=== PATIENT | male | born 1985 | race Caucasian/White ===

== ENCOUNTER 2016-05-11 22:22 | Emergency (ER) | payer OTHER ==
--- NOTE | 2016-05-12 07:08 | ED CLINICAL REPORT ---
Clinical Report - Physicians/Mid Levels [facility] [address] [place] [address] 05/11/2016 22:25 Patient: CECILLE SUNG Time Seen: 22:31. Arrived- By private vehicle. Historian- significant other. History limited by poor cooperation and psychosis. Physical Exam limited by poor cooperation and psychosis. HISTORY OF PRESENT ILLNESS Chief Complaint: BEHAVIOR CHANGE. This started today. The patient has experienced situational problems. (the patient is accompanied by his girlfriend. He arrived at the hospital and staff report that he has been acting very strangely. He has been yelling in the lobby saying nonsensical statements and stripped his clothing off and has been walking around inside and outside hospital building. His girlfriend has been trying to console him and get him to cooperate without much success. Hospital staff contacted [facility]. after their arrival the patient followed myself and staff in 2 room 16. He continued to be speaking nonsense crying at times agitated and threatening towards staff. [place] police officers assisted in rrestraint of the patient and he was treated with Haldol 5 mg IM initially staff subsequently obtain a urine sample and that an IV and the patient received subsequent treatments with Haldol as noted.). He was found wandering. REVIEW OF SYSTEMS Unobtainable due to patient's uncooperativeness. PAST HISTORY Problems: Unknown. Additional Surgeries: no known surgeries. Medications: Unable to Obtain. Allergies: No Known Drug Allergy. SOCIAL HISTORY Has poor social support. FAMILY HISTORY Unable to obtain family medical history due to patient's unresponsiveness. ADDITIONAL NOTES The nursing notes have been reviewed. PHYSICAL EXAM Vital Signs: 05/11/2016 23:16 BP: 120/76. HR: 123. RR: 32. O2 saturation: 100%. Have been reviewed. Appearance: Is disheveled and has poor hygiene. Patient is uncooperative. He appears hostile and agitated and is combative. Eyes: Pupils equal, round and reactive to light. Neck: Normal inspection. Neck supple. CVS: Normal heart rate and rhythm. Heart sounds normal. Respiratory: Breath sounds normal. Chest nontender. Abdomen: Soft and nontender. Back: No tenderness. Skin: Skin warm and dry. Normal skin color. Normal skin turgor. Extremities: Extremities exhibit normal ROM. No calf tenderness. No lower extremity edema. Psych / Neuro: The patient exhibits altered thought processes, verbalized as racing thoughts and non-sensical thoughts. LABS, X-RAYS, AND EKG Laboratory Tests: UA-Culture if indicated: (LEE: 05/11/2016 22:30) ( [facility]11[facility] 22:52) Final results Test Result Flag Units (Reference) URINE COLOR YELLOW URINE APPEARANCE CLEAR URINE GLUCOSE NEGATIVE (NEGATIVE) URINE BILIRUBIN 1+ (NEGATIVE) URINE KETONE 1+ (NEGATIVE) URINE SPECIFIC GRAVITY 1.025 (1.010-1.030) URINE PH 6.0 (5.0-8.0) URINE PROTEIN 1+ (NEGATIVE) URINE UROBILINOGEN 4.0 EU/dL (0.2-1.0) The urobilinogen reagent area may react with interferingsubstances known to react with Mik's reagent such asp-aminosalicylic acid and sulfonamides. Atypical colorreactions may be obtained in the presence of highconcentrations of p-aminobenzoic acid. The absence ofurobilinogen cannot be determined with this test. URINE NITRITE NEGATIVE (NEGATIVE) URINE BLOOD NEGATIVE (NEGATIVE) URINE LEUK ESTERASE TRACE (NEGATIVE) URINE RBC 0-1 rbc/hpf (0-1) URINE WBC 15-25 wbc/hpf (0-1) URINE EPITHELIAL CELLS 0-1 EPI/hpf (0-5) URINE BACTERIA MODERATE (2+ TO 3+) (NONE SEEN) URINE COMMENT CULTURE INDICATED URINE CULTURES ARE SET-UP BASED ON THE FOLLOWING CRITERIA:POSITIVE NITRITEPOSITIVE LEUKOCYTE ESTERASEGREATER THAN 10 WHITE BLOOD CELLSMODERATE (2+) OR GREATER BACTERIA CBC w Diff: (LEE: 05/11/2016 22:40) ( [facility] 05/11/2016 22:55) Final results Test Result Flag Units (Reference) WHITE BLOOD COUNT 14.4 H K/uL (4.5-11.5) RED BLOOD COUNT 4.51 M/uL (4.50-5.90) HEMOGLOBIN 13.3 L gm/dL (13.5-17.5) HEMATOCRIT 40.2 L % (41.0-53.0) MEAN CELL VOLUME 89 fL (80-100) MEAN CORPUSCULAR HGB 30 pg (26-34) MEAN CORPUSCULAR HGB CONC 33 g/dL (31-37) RED CELL DISTRIBUTION WIDTH 13.4 % (11.6-14.8) PLATELET COUNT 304 K/uL (150-400) LYMPH % 29.2 % (25-40) MONO % 8.1 % (3-14) GRANULOCYTE % 62.7 Urine Drug Screen: (LEE: 05/11/2016 22:30) ( MsgRcvd 05/11/2016 22:56) Final results Test Result Flag Units (Reference) AMPHETAMINE/METHAMPHETAMINE POSITIVE H (NEGATIVE) BARBITURATE NEGATIVE (NEGATIVE) BENZODIAZEPINE NEGATIVE (NEGATIVE) CANNABINOID POSITIVE H (NEGATIVE) COCAINE NEGATIVE (NEGATIVE) ECSTASY NEGATIVE (NEGATIVE) METHADONE NEGATIVE (NEGATIVE) OPIATE NEGATIVE (NEGATIVE) The urine drug screen is a qualitative screening test fordrug overdose and abuse. All screen results should beconsidered as presumptive.Drugs screened for are as follows:BenzodiazepinesCocaineAmphetamines/MetamphetaminesTHC (Tetrahydrocannabinol)OpiatesBarbituratesEcstasyMethadonePositive results are unconfirmed. For confirmation, notifythe lab for the specimen to be sent to the reference lab.All confirmations must be performed by a differentmethodology.The ingestion of natural herbal and plant productscontaining Ephedra/Ephedra metabolites can produce in urineone or more substances capable of cross reacting withamphetamine/methamphetamine immunoassays. These testsprovide a preliminary result only. A more specificalternative chemical method must be used to obtain aconfirmed analytical result. CMP: (LEE: 05/11/2016 22:40) ( MsgRcvd 05/11/2016 23:09) Final results Test Result Flag Units (Reference) GLUCOSE 127 H mg/dL (70-110) BUN 18 mg/dL (7-18) CREATININE 1.3 mg/dL (0.6-1.3) Estimated GFR >60 mL/min Estimated GFR- >60 mL/min Note: Persistent reduction over 3 months in eGFR<60 mL/min/1.73 m2 defines CKD. Patients with eGFR values>=60 mL/min/1.73 m2 may also have CKD if evidence ofpersistent proteinuria. Additional information may be foundat www.kidney.org. SODIUM 141 mmol/L (136-145) POTASSIUM 3.2 L mmol/L (3.5-5.1) CHLORIDE 102 mmol/L (98-107) CARBON DIOXIDE 18 L mmol/L (21-32) CALCIUM 8.7 mg/dL (8.5-10.1) TOTAL PROTEIN 7.8 g/dL (6.4-8.2) ALBUMIN 4.2 g/dL (3.3-5.0) BILIRUBIN, TOTAL 0.8 mg/dL (0.0-1.0) ALKALINE PHOSPHATASE 104 U/L (46-116) AST (SGOT) 34 U/L (15-37) ALT (SGPT) 31 U/L (12-78) LIPASE 74 U/L (73-393) AMYLASE 22 L U/L (25-115) ETHYL ALCOHOL <3 L mg/dL (3-10) . PROGRESS AND PROCEDURES Course of Care: A mask was placed over the patient's face as he was spitting at staff. 07:00. Evaluation after observation and sedative. Symptoms better. Patient is not having pain. No difficulty breathing, nausea, vomiting or palpitations. He is having mild anxiety. Vital signs have been reviewed. Physical exam findings are improved. Alert. Breath sounds normal. No respiratory distress. Normal heart rate and rhythm. Heart sounds normal. Abdomen soft and nontender. Skin warm and dry. Mental status altered. Disoriented to place and time. Eyes open spontaneously. Best verbal response: disoriented. Best motor response: obeys commands. Patient/family counseled. Old medical records ordered. Old records unavailable. Disposition: Discharged. Condition: stable. CLINICAL IMPRESSION Substance abuse- marijuana, methamphetamines. INSTRUCTIONS No driving or operating machinery while taking medication. Sedative medication was given during your visit. Stay with responsible adult family member (or other responsible adult). (seek medical help to address your substance abuse as discussed). Warnings: Further evaluation is necessary. GENERAL WARNINGS: Return or contact your physician immediately if your condition worsens or changes unexpectedly, if not improving as expected, or if other problems arise. Follow-up: Follow up with your doctor. Call for the next available appointment. Understanding of the discharge instructions verbalized by patient. Discharge instructions reviewed with and understanding was verbalized by press operator assistant. (Electronically signed by nAt Guy MD 05/13/2016 2:41)
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
--- NOTE | 2016-05-12 07:08 | ED ORDER SUMMARY ---
..... Patient: CECILLE SUNG OrderSheet [facility] VisitID: [id number] [address] [place] [address] 30y, M Registration Date/Time: 05/11/2016 ORDER SHEET Weight: 86.1 kg (estimated) Allergies: No Known Drug Allergy GENERAL ORDERS: CBC w Diff Urgent (22:32 05/11/2016 Aman STORY) (Ack 22:52 LMuller) (22:52 LMuller) CMP Urgent (22:32 05/11/2016 Aman STORY) (Ack 22:52 LMuller) (22:52 LMuller) UA-Culture if indicated Urgent (22:05/11/2016 Aman STORY) (22:39 Gabriel R.N.) Amylase Urgent (22:05/11/2016 Aman STORY) (Ack 22:52 LMuller) (22:52 LMuller) Lipase Urgent (22:32 05/11/2016 Aman STORY) (Ack 22:52 LMuller) (22:52 LMuller) Urine Drug Screen Urgent (22:32 05/11/2016 Aman STORY) (22:39 Gabriel R.N.) Ethyl Alcohol Urgent (22:32 05/11/2016 Aman STORY) (Ack 22:52 LMuller) (22:52 LMuller) MEDICATION ORDERS: Haldol IM 5 mg (HIGH ALERT MEDICATION, NOW) (22:52 05/11/2016 LeifQuivey R.N. verbal order read back to Aman STORY) (22:53 JQuivey R.N.) IV FLUIDS: Haldol IV 1 mg (HIGH ALERT MEDICATION, NOW) (23:05 05/11/2016 Aman STORY) (Ack 23:10 JQuivey R.N.) (23:35 JQuivey R.N.) ORDER SHEET NOTES: [Electronically signed by Rene Mann R.N. (07:21 05/12/2016)] [Electronically signed by Ant Guy MD (02:41 05/13/2016)] [Electronically locked/signed by Rene Mann R.N. (07:21 05/12/2016)]
--- NOTE | 2016-05-12 07:08 | ED ORDER SUMMARY ---
..... Patient: CECILLE SUNG OrderSheet [facility] VisitID: [id number] [address] [place] [address] 30y, M Registration Date/Time: 05/11/2016 ORDER SHEET Weight: 86.1 kg (estimated) Allergies: No Known Drug Allergy GENERAL ORDERS: CBC w Diff Urgent (22:32 05/11/2016 Aman STORY) (Ack 22:52 LMuller) (22:52 LMuller) CMP Urgent (22:32 05/11/2016 Aman STORY) (Ack 22:52 LMuller) (22:52 LMuller) UA-Culture if indicated Urgent (22:05/11/2016 Aman STORY) (22:39 Gabriel R.N.) Amylase Urgent (22:05/11/2016 Aman STORY) (Ack 22:52 LMuller) (22:52 LMuller) Lipase Urgent (22:32 05/11/2016 Aman STORY) (Ack 22:52 LMuller) (22:52 LMuller) Urine Drug Screen Urgent (22:32 05/11/2016 Aman STORY) (22:39 Gabriel R.N.) Ethyl Alcohol Urgent (22:32 05/11/2016 Aman STORY) (Ack 22:52 LMuller) (22:52 LMuller) MEDICATION ORDERS: Haldol IM 5 mg (HIGH ALERT MEDICATION, NOW) (22:52 05/11/2016 LeifQuivey R.N. verbal order read back to Aman STORY) (22:53 JQuivey R.N.) IV FLUIDS: Haldol IV 1 mg (HIGH ALERT MEDICATION, NOW) (23:05 05/11/2016 Aman STORY) (Ack 23:10 JQuivey R.N.) (23:35 JQuivey R.N.) ORDER SHEET NOTES: [Electronically signed by Rene Mann R.N. (07:21 05/12/2016)] [Electronically signed by Ant Guy MD (02:41 05/13/2016)] [Electronically locked/signed by Rene Mann R.N. (07:21 05/12/2016)]
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
--- NOTE | 2016-05-13 02:41 | ED DISCHARGE INSTRUCTIONS ---
Patient: CECILLE SUNG General Instructions [facility] VisitID: [id number] [place] [address] 30y, M Registration Date/Time: 05/11/2016 Substance abuse- marijuana, methamphetamines. INSTRUCTIONS No driving or operating machinery while taking medication. Sedative medication was given during your visit. Stay with responsible adult family member (or other responsible adult). (seek medical help to address your substance abuse as discussed). Warnings: Further evaluation is necessary. GENERAL WARNINGS: Return or contact your physician immediately if your condition worsens or changes unexpectedly, if not improving as expected, or if other problems arise. Follow-up: Follow up with your doctor. Call for the next available appointment. Understanding of the discharge instructions verbalized by patient. Discharge instructions reviewed with and understanding was verbalized by geological e logger. ADDITIONAL INFORMATION Drug Abuse Use and abuse of such drugs as marijuana, amphetamines (speed, crank), cocaine, heroin or prescription pain medicines (Vicodin, codeine), sedatives and sleeping pills (Valium, Klonopin), PCP, mescaline and LSD may lead to addiction or dependence. Once this occurs, you are at greater risk for any of the following: Craving for the drug and unable to stop using the drug even though you think you want to stop (psychological dependence) Drug withdrawal symptoms if you stop taking the drug (physical dependence) Loss of your job or your family Arrest, conviction and assisted sentence for possession of an illegal substance or for driving under the influence of such a substance Accidental injuries to yourself or others while you are under the influence of the drug (in a car or at home). HIV infection (much greater risk if you use IV drugs) Other sexually transmitted diseases (herpes, chlamydia, gonorrhea and others) Severe and fatal infection of the heart valves (if you use IV drugs) Stroke, heart attack, hepatitis B or C, kidney failure from overdose Home Care: Admit you have a drug problem. Ask for help from your family and close friends. Seek professional help. This could be in the form of individual psychotherapy or counseling or an outpatient, inpatient, or residential drug treatment program. Join a self-help group for drug abuse. Avoid friends who abuse drugs themselves or tempt you to continue abusing drugs. Eat a balanced diet and begin a regular exercise program. Follow Up with your doctor or as advised by our staff. Contact one of the resources below for help. National [place] on Alcoholism and Drug Dependence www.ncadd.org 433-007-YYWI Narcotics Anonymous www.na.org 359-857-7409 National Alcohol and Substance Abuse Information Center (for referral to treatment programs) www.[employer]uclip 114-634-0097 Get Prompt Medical Attention if any of the following occur: Agitation, anxiety, unable to sleep Unintended weight loss (more than 10 to 15 pounds over 3 months) Seizure Chest pain Fever of 100.4F (38C) or higher, or as directed by your healthcare provider Excess drowsiness or inability to be awakened Shortness of breath Slow breathing under 8 breaths per minute Cough with colored sputum Redness, swelling or tenderness at an injection site Marijuana Abuse Marijuana is the most widely used illegal drug in the [place]. It is called by various names such as pot, weed, blunts, grass, reefer, ganja, hash, hashish. It is usually smoked but can be mixed with foods or brewed as a tea. It is sometimes sold with PCP (Jason Dust) or amphetamine mixed in it. These drugs can cause other harmful side effects. Marijuana can cause the following effects: Changes in mood (stimulated, happy, drowsy, depressed, paranoid) Hallucinations Increased heart rate and blood pressure Increased appetite Time distortion, difficulty concentrating, impaired memory Lung damage (similar to cigarettes with chronic cough, wheezing, frequent colds and bronchitis) You can become psychologically dependent on marijuana. That means the craving to use the drug is emotional or psychological rather than due to physical withdrawal. Is Marijuana Running Your Life? Here are some of the signs: Relying on marijuana to feel good, forget problems, deal with stress or to relax Wanting to be alone most of the time or only with others who use drugs Losing interest in things that used to be important Changes in school or job performance or attendance Spending a lot of time thinking about how to get marijuana Stealing or selling your things so you can buy marijuana Unable to stop using even though you may want to quit Increasing anxiety, anger,or depression Sleeping too much, changes in eating habits (weight loss or gain) Needing to use more to get the same effect Home Care Once you have become addicted to any drug, quitting is hard to do. Most people find they can't quit without help. So, dont try to do this alone. Talk to someone you trust who can support you. Seek professional help. Avoid people and places where drugs are used. That only increases the temptation to use. Follow Up with your doctor or as advised by our staff. For more information or a referral to a treatment center in your area, contact: Your local mental health center or the National Alcohol and Substance Abuse Information Center (987)-725-4845 www.addictioncareMaktoobions.com National [place] on Alcoholism and Drug Dependence 426-979-KBNY www.ncadd.org Marijuana Anonymous 851-041-2651 www.marijuana-anonymous.org Get Prompt Medical Attention if any of the following occur: You feel extreme depression, fear, anxiety, or anger toward yourself or others You feel out of control You feel that you may try to harm yourself or another You have been given the following additional information: Drug Abuse Marijuana Abuse No driving or operating machinery while taking medication. Sedative medication was given during your visit. Stay with responsible adult family member (or other responsible adult). (Electronically signed by Ant Guy MD 05/13/2016 2:41)
--- NOTE | 2016-05-13 02:41 | ED MED RECONCILIATION SUMMARY ---
Patient: MILTONAFSHANCECILLE Childs Naz Medication Reconciliation Report [facility] VisitID: [id number] [address] [place] [address] 30y, M Registration Date/Time: 05/11/2016 Weight: 86.1 kg Height/Length: 71 in. BMI: 26.5 ALLERGIES: No Known Drug Allergy The patient's Home Medications are listed below: Unable to obtain. The source(s) of the original Home Medication information: Not obtained. The following Medications were given to the patient in the Emergency Department: HALDOL [IM] IM 5 mg, administered: 05/11/2016 10:28:00 PM HALDOL [IVP] IVP 1 mg, administered: 05/11/2016 11:33:00 PM HALDOL [IVP] IVP 1 mg, administered: 05/11/2016 11:15:00 PM HALDOL [IVP] IVP 1 mg, administered: 05/11/2016 11:57:00 PM HALDOL [IVP] IVP 1 mg, administered: 05/12/2016 12:16:00 AM The following Medications were prescribed to the patient: None.
--- NOTE | 2016-05-13 02:41 | ED DISCHARGE INSTRUCTIONS ---
Patient: CECILLE SUNG General Instructions [facility] VisitID: [id number] [place] [address] 30y, M Registration Date/Time: 05/11/2016 Substance abuse- marijuana, methamphetamines. INSTRUCTIONS No driving or operating machinery while taking medication. Sedative medication was given during your visit. Stay with responsible adult family member (or other responsible adult). (seek medical help to address your substance abuse as discussed). Warnings: Further evaluation is necessary. GENERAL WARNINGS: Return or contact your physician immediately if your condition worsens or changes unexpectedly, if not improving as expected, or if other problems arise. Follow-up: Follow up with your doctor. Call for the next available appointment. Understanding of the discharge instructions verbalized by patient. Discharge instructions reviewed with and understanding was verbalized by physical metallurgist. ADDITIONAL INFORMATION Drug Abuse Use and abuse of such drugs as marijuana, amphetamines (speed, crank), cocaine, heroin or prescription pain medicines (Vicodin, codeine), sedatives and sleeping pills (Valium, Klonopin), PCP, mescaline and LSD may lead to addiction or dependence. Once this occurs, you are at greater risk for any of the following: Craving for the drug and unable to stop using the drug even though you think you want to stop (psychological dependence) Drug withdrawal symptoms if you stop taking the drug (physical dependence) Loss of your job or your family Arrest, conviction and alf sentence for possession of an illegal substance or for driving under the influence of such a substance Accidental injuries to yourself or others while you are under the influence of the drug (in a car or at home). HIV infection (much greater risk if you use IV drugs) Other sexually transmitted diseases (herpes, chlamydia, gonorrhea and others) Severe and fatal infection of the heart valves (if you use IV drugs) Stroke, heart attack, hepatitis B or C, kidney failure from overdose Home Care: Admit you have a drug problem. Ask for help from your family and close friends. Seek professional help. This could be in the form of individual psychotherapy or counseling or an outpatient, inpatient, or residential drug treatment program. Join a self-help group for drug abuse. Avoid friends who abuse drugs themselves or tempt you to continue abusing drugs. Eat a balanced diet and begin a regular exercise program. Follow Up with your doctor or as advised by our staff. Contact one of the resources below for help. National [place] on Alcoholism and Drug Dependence www.ncadd.org 903-277-QRYJ Narcotics Anonymous www.na.org 291-007-9623 National Alcohol and Substance Abuse Information Center (for referral to treatment programs) www.[employer]Planning 718-551-4805 Get Prompt Medical Attention if any of the following occur: Agitation, anxiety, unable to sleep Unintended weight loss (more than 10 to 15 pounds over 3 months) Seizure Chest pain Fever of 100.4F (38C) or higher, or as directed by your healthcare provider Excess drowsiness or inability to be awakened Shortness of breath Slow breathing under 8 breaths per minute Cough with colored sputum Redness, swelling or tenderness at an injection site Marijuana Abuse Marijuana is the most widely used illegal drug in the [place]. It is called by various names such as pot, weed, blunts, grass, reefer, ganja, hash, hashish. It is usually smoked but can be mixed with foods or brewed as a tea. It is sometimes sold with PCP (Jason Dust) or amphetamine mixed in it. These drugs can cause other harmful side effects. Marijuana can cause the following effects: Changes in mood (stimulated, happy, drowsy, depressed, paranoid) Hallucinations Increased heart rate and blood pressure Increased appetite Time distortion, difficulty concentrating, impaired memory Lung damage (similar to cigarettes with chronic cough, wheezing, frequent colds and bronchitis) You can become psychologically dependent on marijuana. That means the craving to use the drug is emotional or psychological rather than due to physical withdrawal. Is Marijuana Running Your Life? Here are some of the signs: Relying on marijuana to feel good, forget problems, deal with stress or to relax Wanting to be alone most of the time or only with others who use drugs Losing interest in things that used to be important Changes in school or job performance or attendance Spending a lot of time thinking about how to get marijuana Stealing or selling your things so you can buy marijuana Unable to stop using even though you may want to quit Increasing anxiety, anger,or depression Sleeping too much, changes in eating habits (weight loss or gain) Needing to use more to get the same effect Home Care Once you have become addicted to any drug, quitting is hard to do. Most people find they can't quit without help. So, dont try to do this alone. Talk to someone you trust who can support you. Seek professional help. Avoid people and places where drugs are used. That only increases the temptation to use. Follow Up with your doctor or as advised by our staff. For more information or a referral to a treatment center in your area, contact: Your local mental health center or the National Alcohol and Substance Abuse Information Center (353)-622-5788 www.addictioncareNORCATions.com National [place] on Alcoholism and Drug Dependence 329-408-JBXZ www.ncadd.org Marijuana Anonymous 763-385-9225 www.marijuana-anonymous.org Get Prompt Medical Attention if any of the following occur: You feel extreme depression, fear, anxiety, or anger toward yourself or others You feel out of control You feel that you may try to harm yourself or another You have been given the following additional information: Drug Abuse Marijuana Abuse No driving or operating machinery while taking medication. Sedative medication was given during your visit. Stay with responsible adult family member (or other responsible adult). (Electronically signed by Ant Guy MD 05/13/2016 2:41)
--- NOTE | 2016-05-13 02:41 | ED MAR SUMMARY ---
..... Medication Administration Record [facility] [address] [place] [address] Patient: CECILLE SUNG Visit ID: [id number] 30y, M Weight: 86.1 kg Height/Length: 71 in BMI: 26.5 ALLERGIES: No Known Drug Allergy Given 22:28 05/11/2016 Danilo Rodriguez R.N. Medication Administered: HALDOL [IM] (HALOPERIDOL LACTATE), Dose: 5 mg IM. Medication Ordered: Haldol IM 5 mg (HIGH ALERT MEDICATION, NOW). Given 23:15 05/11/2016 Danilo Rodriguez R.N. Medication Administered: HALDOL [IVP] (HALOPERIDOL LACTATE), Dose: 1 mg IVP over 2 minute(s), Site: #1 right AC. Medication Ordered: Haldol IV 1 mg (HIGH ALERT MEDICATION, NOW). Given 23:33 05/11/2016 Danilo Rodriguez R.N. Medication Administered: HALDOL [IVP] (HALOPERIDOL LACTATE), Dose: 1 mg IVP over 2 minute(s), Site: #1 right AC. Medication Ordered: Haldol IV 1 mg (HIGH ALERT MEDICATION, NOW). Given 23:57 05/11/2016 Danilo Rodriguez R.N. Medication Administered: HALDOL [IVP] (HALOPERIDOL LACTATE), Dose: 1 mg IVP over 2 minute(s), Site: #1 right AC. Medication Ordered: Haldol IV 1 mg (HIGH ALERT MEDICATION, NOW). Given 00:16 05/12/2016 Danilo Rodriguez R.N. Medication Administered: HALDOL [IVP] (HALOPERIDOL LACTATE), Dose: 1 mg IVP over 2 minute(s), Site: #1 right AC. Medication Ordered: Haldol IV 1 mg (HIGH ALERT MEDICATION, NOW).
--- NOTE | 2016-05-13 02:41 | ED MED RECONCILIATION SUMMARY ---
Patient: MILTONAFSHANCECILLE Childs Naz Medication Reconciliation Report [facility] VisitID: [id number] [address] [place] [address] 30y, M Registration Date/Time: 05/11/2016 Weight: 86.1 kg Height/Length: 71 in. BMI: 26.5 ALLERGIES: No Known Drug Allergy The patient's Home Medications are listed below: Unable to obtain. The source(s) of the original Home Medication information: Not obtained. The following Medications were given to the patient in the Emergency Department: HALDOL [IM] IM 5 mg, administered: 05/11/2016 10:28:00 PM HALDOL [IVP] IVP 1 mg, administered: 05/11/2016 11:33:00 PM HALDOL [IVP] IVP 1 mg, administered: 05/11/2016 11:15:00 PM HALDOL [IVP] IVP 1 mg, administered: 05/11/2016 11:57:00 PM HALDOL [IVP] IVP 1 mg, administered: 05/12/2016 12:16:00 AM The following Medications were prescribed to the patient: None.
--- NOTE | 2016-05-13 02:41 | ED MAR SUMMARY ---
..... Medication Administration Record [facility] [address] [place] [address] Patient: CECILLE SUNG Visit ID: [id number] 30y, M Weight: 86.1 kg Height/Length: 71 in BMI: 26.5 ALLERGIES: No Known Drug Allergy Given 22:28 05/11/2016 Danilo Rodriguez R.N. Medication Administered: HALDOL [IM] (HALOPERIDOL LACTATE), Dose: 5 mg IM. Medication Ordered: Haldol IM 5 mg (HIGH ALERT MEDICATION, NOW). Given 23:15 05/11/2016 Danilo Rodriguez R.N. Medication Administered: HALDOL [IVP] (HALOPERIDOL LACTATE), Dose: 1 mg IVP over 2 minute(s), Site: #1 right AC. Medication Ordered: Haldol IV 1 mg (HIGH ALERT MEDICATION, NOW). Given 23:33 05/11/2016 Danilo Rodriguez R.N. Medication Administered: HALDOL [IVP] (HALOPERIDOL LACTATE), Dose: 1 mg IVP over 2 minute(s), Site: #1 right AC. Medication Ordered: Haldol IV 1 mg (HIGH ALERT MEDICATION, NOW). Given 23:57 05/11/2016 Danilo Rodriguez R.N. Medication Administered: HALDOL [IVP] (HALOPERIDOL LACTATE), Dose: 1 mg IVP over 2 minute(s), Site: #1 right AC. Medication Ordered: Haldol IV 1 mg (HIGH ALERT MEDICATION, NOW). Given 00:16 05/12/2016 Danilo Rodriguez R.N. Medication Administered: HALDOL [IVP] (HALOPERIDOL LACTATE), Dose: 1 mg IVP over 2 minute(s), Site: #1 right AC. Medication Ordered: Haldol IV 1 mg (HIGH ALERT MEDICATION, NOW).
== END 2016-05-12 07:19 | disposition home or self-care (01) ==
LOC: ED SRH 22:22
DX: F12.10 Cannabis abuse, uncomplicated (principal); F15.10 Other stimulant abuse, uncomplicated; Z78.1 Physical restraint status
CPT/HCPCS: 90004; 90100; 90469; 92010; 92235; 92530; 92760; 92761; 92762; 92763; 92764; 92765; 92766; 92767; 95059